=== PATIENT | female | born 1980 | race Caucasian/White ===

== ENCOUNTER 2017-07-17 13:43 | Emergency (ER) | payer MEDICAID ==
[~2017-07-17] VITALS: Ht 160 cm; Wt 55.4 kg
[2017-07-17] MEDS ORDERED: ACETAMINOPHEN 325 MG TABLET PO ONE (14:30)
[2017-07-17] MEDS ORDERED: ACETAMINOPHEN 325 MG TABLET ONE (14:45)
[2017-07-17 14:48] VITALS: BP 103/77
== END 2017-07-17 14:50 | disposition home or self-care (01) ==
LOC: ED 14:30
DX: J02.0 Streptococcal pharyngitis (principal)
CPT/HCPCS: 99283

== ENCOUNTER 2017-09-23 12:14 | Emergency (ER) | payer SELFPAY ==
[~2017-09-23] VITALS: Ht 160 cm; Wt 55.0 kg
[2017-09-23 12:36] VITALS: BP 118/80
[2017-09-23] MEDS ORDERED: LIDOCAINE 1%, 20ML SQ ONE (13:30)
== END 2017-09-23 14:04 | disposition home or self-care (01) ==
LOC: ED 13:58
DX: L02.412 Cutaneous abscess of left axilla (principal)
CPT/HCPCS: 99283

== ENCOUNTER 2017-10-13 16:02 | Emergency (ER) | payer MEDICAID, OTHER ==
[~2017-10-13] VITALS: Ht 160 cm; Wt 56.8 kg
[2017-10-13 16:06] VITALS: BP 137/80
[2017-10-13] MEDS ORDERED: IBUPROFEN 200 MG TABLET PO ONE (17:00)
[2017-10-13] MEDS ORDERED: IBUPROFEN 200 MG TABLET ONE (17:29)
== END 2017-10-13 17:46 | disposition home or self-care (01) ==
LOC: ED 17:14
DX: M54.2 Cervicalgia (principal); H92.01 Otalgia, right ear; R68.84 Jaw pain
CPT/HCPCS: 70360; 99283

== ENCOUNTER 2017-12-27 15:29 | Emergency (ER) | payer MEDICAID ==
[~2017-12-27] VITALS: Ht 160 cm; Wt 55.9 kg
[2017-12-27 15:36] VITALS: BP 129/80
[2017-12-27] MEDS ORDERED: HYDROcodone/APAP 5/325 TABLET ONE (16:49)
[2017-12-27] MEDS ORDERED: HYDROcodone/APAP 5/325 TABLET PO ONE (17:00)
[2017-12-27] MEDS ORDERED: PLEASE ENTER ALLERGIES MC SCH (17:00)
== END 2017-12-27 17:18 | disposition home or self-care (01) ==
LOC: ED 16:00
DX: S62.326A Displaced fracture of shaft of fifth metacarpal bone, right hand, initial encounter for closed fracture (principal); W18.11XA Fall from or off toilet without subsequent striking against object, initial encounter; Y93.89 Activity, other specified; Y92.002 Bathroom of unspecified non-institutional (private) residence as the place of occurrence of the external cause; Y99.8 Other external cause status
CPT/HCPCS: 29125; 99284

== ENCOUNTER 2020-07-08 14:18 | Emergency (ER) | payer MEDICAID ==
[~2020-07-08] VITALS: Ht 160 cm; Wt 56.8 kg
[2020-07-08 14:42] VITALS: BP 143/68
[2020-07-08 15:10] LABS: MEAN CORPUSCULAR HEMOGLOBIN 18.3 pg (27.0-34.8); MEAN PLATELET VOLUME 8.4 fL (7.4-10.4); PLATELET COUNT 484 x10^3/uL (130-400); RED BLOOD COUNT 3.97 x10^6/uL (3.82-5.3); RED CELL DISTRIBUTION WIDTH 21.6 % (9.6-15.2)
[2020-07-08 15:12] LABS: ANION GAP 5 mmol/L (5-15); CHLORIDE 108 mmol/L (98-107)
[2020-07-08 15:13] LABS: CREATININE 0.93 mg/dL (0.55-1.02)
[2020-07-08 15:24] LABS: MEAN CORPUSCULAR HGB CONC 29.5 g/dL (32.4-35.8)
[2020-07-08 15:27] LABS: BASOPHILS # (AUTO) 0.03 x10^3/uL (0-0.1); BASOPHILS % (AUTO) 1 % (0-1); EOSINOPHILS # (AUTO) 0.21 x10^3/uL (0-0.4); EOSINOPHILS % (AUTO) 4 % (1-7); LYMPHOCYTES # (AUTO) 1.66 x10^3/uL (1-3.4); LYMPHOCYTES % (AUTO) 30 % (22-44); MD MORPH REVIEW ONLY; MONOCYTES # (AUTO) 0.56 x10^3/uL (0.2-0.8); MONOCYTES % (AUTO) 10 % (2-9); NEUTROPHILS # (AUTO) 3.17 x10^3/uL (1.8-6.8); NEUTROPHILS % (AUTO) 56 % (42-75)
[2020-07-08 15:28] LABS: ANISOCYTOSIS 1+; HYPOCHROMIA 1+; MICROCYTOSIS 2+
[2020-07-08 15:32] LABS: OVALOCYTES 1+
[2020-07-08 15:33] LABS: <PLATELET ESTIMATE> INCREASED; <PLT MORPHOLOGY> NORMAL PLT MORPH; POLYCHROMASIA 1+
--- NOTE | 2020-07-08 16:13 | NUR ---
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
--- NOTE | 2020-07-08 16:25 | NUR ---
BATCH FREEZER OPERATOR: PT CALLED FOR ROOM, NO ANSWER
--- NOTE | 2020-07-08 16:40 | NUR ---
PUBLIC RELATIONS COORDINATOR: CALLED FOR ROOM, NO ANSWER
== END 2020-07-08 17:44 | disposition left against medical advice (07) ==
LOC: ED 16:38
DX: K08.89 Other specified disorders of teeth and supporting structures (principal); R55 Syncope and collapse
CPT/HCPCS: 36415; 80048; 82040; 85025; 99283